=== PATIENT | female | born 1940 | race African-American/Black ===

== ENCOUNTER 2017-04-26 18:21 | Emergency (ER) | payer MEDICARE, BC ==
[~2017-04-26] VITALS: Ht 165.1 cm; Wt 72.6 kg
[2017-04-26 19:30] VITALS: BP 187/76
[2017-04-26 19:34] LABS: BASOPHILS % (AUTO) 1.7 % (0.0-2.0); EOSINOPHILS % (AUTO) 2.9 % (0.0-3.0); LYMPHOCYTES % (AUTO) 44.2 % (20.0-45.0); MEAN CORPUSCULAR HGB CONC 30.9 G/DL (32.0-36.0); MEAN CORPUSCULAR VOLUME 91 FL (80-99); MEAN PLATELET VOLUME 6.3 FL (6.5-10.1); MONOCYTES % (AUTO) 6.1 % (1.0-10.0); NEUTROPHILS % (AUTO) 45.1 % (45.0-75.0); PLATELET COUNT 286 K/UL (150-450); RED CELL DISTRIBUTION WIDTH 12.3 % (11.6-14.8)
[2017-04-26 20:38] LABS: ALANINE AMINOTRANSFERASE 21 U/L (12-78); ALBUMIN/GLOBULIN RATIO 0.9 (1.0-2.7); ANION GAP 11 mmol/L (5-15); ASPARTATE AMINO TRANSFERASE 21 U/L (15-37); CALCIUM 9.9 MG/DL (8.5-10.1); CARBON DIOXIDE 25 MMOL/L (21-32); CHLORIDE 99 MMOL/L (98-107); POTASSIUM 4.2 MMOL/L (3.5-5.1); SODIUM 135 MMOL/L (136-145); TOTAL PROTEIN 7.5 G/DL (6.4-8.2)
--- NOTE | 2017-04-26 20:54 | Emergency Room Report ---
History of Present Illness General Chief Complaint: Pain Source: Patient Present Illness HPI 77YOF walk-in with left forearm/hand numbness/tingling for 3 hours Denies any weakness/loss of strength to left hand "worried its another CVA." Is on Plavix, ASA since ?CVA in November - left her right right sided residual weakness Also history of IDDM, compliant. Checked glucose at home, was "normal." Patient History Past Medical History: DM, CVA/TIA Past Surgical History: none Pertinent Family History: none Social History: Denies: smoking, alcohol use, drug use Now: No Immunizations: UTD Reviewed Nursing Documentation: PMH: Agreed, PSxH: Agreed Nursing Documentation-PMH Hx Hypertension: Yes Hx Diabetes: Yes Hx Cerebrovascular Accident: Yes Review of Systems All Other Systems: negative except mentioned in HPI Physical Exam Vital Signs Date Time Temp Pulse Resp B/P (MAP) Pulse Ox O2 Delivery O2 Flow Rate FiO2 04/26/17 18:29 99.1 66 18 187/76 99 Room Air Sp02 EP Interpretation: reviewed, normal General Appearance: normal inspection, well appearing, no apparent distress, alert, GCS 15, non-toxic Head: normocephalic, atraumatic Eyes: bilateral eye PERRL, bilateral eye EOMI ENT: normal ENT inspection, hearing grossly normal, normal voice Neck: normal inspection, full range of motion, supple, no bony tend Respiratory: normal inspection, lungs clear, normal breath sounds, no respiratory distress, no retraction, no accessory muscle use, no wheezing, speaking full sentences Cardiovascular #1: regular rate, rhythm, no edema Gastrointestinal: normal inspection, normal bowel sounds, non tender, soft, no guarding, no hernia Genitourinary: no CVA tenderness Musculoskeletal: normal inspection, back normal, normal range of motion, Britany' s Sign negative Neurologic: normal inspection, alert, oriented x3, responsive, public health technologist III-XII nml as tested, speech normal Psychiatric: normal inspection, judgement/insight normal, mood/affect normal Skin: normal inspection, normal color, no rash Lymphatic: normal inspection Medical Decision Making Medicare Attestation I Aram Villarreal MD hereby attest that the medical record entry for date of service, 04/26/17 accurately reflects signatures/notations that I made in my capacity as MD when I treated/diagnosed the above listed Medicare beneficiary. I attest that this information is true, accurate and complete to the best of my knowledge. I understand that any falsification, omission, or concealment of material fact may subject me to administrative, civil, or criminal liability. This patient warrants hospital admission for extreme of age and has a condition that cannot be treated as outpatient. Diagnostic Impression: Primary Impression: Numbness and tingling in left hand ER Course Numbness to left hand VSS. Afebrile Radiologist from [facility] called with ?subacute/chronic left sided becca infarct. Unlikely acute No previous imaging here to compare to Likely related to old CVA Will need MRI for definitive evaluation Labs otherwise ok Endorsed to Dr Becker for panel admit at 904pm Last Vital Signs Date Time Temp Pulse Resp B/P (MAP) Pulse Ox O2 Delivery O2 Flow Rate FiO2 04/26/17 19:30 98.2 76 20 187/76 100 Room Air Status: improved Disposition: ADMITTED INPATIENT Condition: Serious Referrals: RACHLEE ZIMMERMAN (PCP) ARAM VILLARREAL M.D. Apr 26, 2017 20:54
[2017-04-26 22:05] VITALS: BP 134/48
--- NOTE | 2017-04-27 08:50 | Diagnostic Imaging Report ---
Indications: Vertigo Technique: Spiral acquisitions obtained through the brain. Angled axial and coronal 5 x 5 mm slices were reconstructed. Total dose length product 1245 mGycm. CTDI vol(s) 70 mGy. Dose reduction achieved using automated exposure control Comparison: None Findings: There is age-related enlargement of the ventricles and extra-axial CSF spaces. No acute the degree hemorrhage or edema. No mass effect or midline shift. There is mild periventricular deep white matter chronic ischemic change. There is an old lacunar infarct in the left side of the becca. Old lacunar infarct is seen in the left external capsule. Intact calvarium. There is evidence of prior bilateral cataract surgery. Visualized sinuses are unremarkable. Impression: Chronic and age-related changes Old lacunar infarcts, as described Negative for acute intracranial bleed or mass effect This agrees with the preliminary interpretation provided overnight by [facility]. The CT scanner at [facility] is accredited by the [employer] and the scans are performed using protocols designed to limit radiation exposure to as low as reasonably achievable to attain images of sufficient resolution adequate for diagnostic evaluation.
== END 2017-04-26 22:06 | disposition left against medical advice (07) ==
LOC: EMR 19:10
DX: R20.0 Anesthesia of skin (principal); R20.2 Paresthesia of skin; R42 Dizziness and giddiness; I10 Essential (primary) hypertension; E11.9 Type 2 diabetes mellitus without complications; Z86.73 Personal history of transient ischemic attack (TIA), and cerebral infarction without residual deficits
CPT/HCPCS: 36415; 70450; 80053; 82550; 85025; 99284

== ENCOUNTER 2017-11-10 19:29 | Emergency (ER) | payer MEDICARE, BC ==
[~2017-11-10] VITALS: Ht 165.1 cm; Wt 70.3 kg
[2017-11-10] MEDS ORDERED: COREG3.125 MG ORAL (19:42)
[2017-11-10] MEDS ORDERED: ASPIRIN81 MG ORAL (19:42)
[2017-11-10] MEDS ORDERED: LANTUS SOL100 UNIT/1 SUBQ (19:42)
[2017-11-10] MEDS ORDERED: PLAVIX75 MG ORAL (19:42)
[2017-11-10] MEDS ORDERED: HUMALOG100 UNIT/4 SUBQ (19:42)
--- NOTE | 2017-11-10 20:40 | Emergency Room Report ---
History of Present Illness General Chief Complaint: Multiple Trauma/Fall Source: Patient Present Illness HPI 77yo F with h/o CVA with R HP and htn p/w occipital ABDULLAHI s/p fall down That occurred when she was not using her walker and trying to get up She did not lose consciousness, denies neck pain, denies any new numbness tingling or weakness She did not bleed anywhere, did not have chest pain and had no other complaints at all She has chronic pain in her right leg and reports that is unchanged She is able to move everything and does not feel any changes at all of this headache She is due for her nighttime blood pressure medications which she did not take because she came to the ER Allergies: Coded Allergies: No Known Allergies (Unverified , 04/27/17) Patient History Past Medical History: see triage record Last Menstrual Period: NA Reviewed Nursing Documentation: PMH: Agreed; PSxH: Agreed Nursing Documentation-PMH Hx Hypertension: Yes Hx Diabetes: Yes Hx Cerebrovascular Accident: Yes Review of Systems All Other Systems: negative except mentioned in HPI Physical Exam Vital Signs Date Time Temp Pulse Resp B/P (MAP) Pulse Ox O2 Delivery O2 Flow Rate FiO2 11/10/17 19:37 98.6 78 18 202/98 98 Room Air 98.6 Sp02 EP Interpretation: reviewed, normal, abnormal - htn General Appearance: no apparent distress, alert, non-toxic Head: normocephalic, other - small hematoma over occiput, tender Eyes: bilateral eye normal inspection, bilateral eye PERRL, bilateral eye EOMI ENT: normal ENT inspection, hearing grossly normal, normal pharynx, no angioedema, normal voice, moist mucus membranes Neck: normal inspection, full range of motion, supple, no bony tend, supple/ symm/no masses Respiratory: chest non-tender, lungs clear, normal breath sounds, chest symmetrical, palpation of chest normal Cardiovascular #1: normal peripheral pulses, regular rate, rhythm Cardiovascular #2: 2+ radial (R), 2+ radial (L) Gastrointestinal: normal inspection, non tender, soft, no mass, no guarding, no rebound Rectal: deferred Genitourinary: normal inspection, no CVA tenderness Musculoskeletal: back normal, gait/station normal, normal range of motion, non- tender, no calf tenderness Neurologic: alert, responsive, educational manager III-XII nml as tested, motor strength/tone normal - R sided weakness 4/5, sensory intact, speech normal Psychiatric: judgement/insight normal, memory normal, mood/affect normal, no suicidal/homicidal ideation Skin: normal color, no rash, warm/dry, normal turgor Lymphatic: no adenopathy Medical Decision Making Diagnostic Impression: Primary Impression: Fall ER Course Patient well-appearing, Workup was minimal this was a mechanical fall Patient with normal exam other than small hematoma BP treated with meds Rhythm Strip Diag. Results Rhythm Strip Time: 20:38 EP Interpretation: yes Rate: 68 Rhythm: NSR, no PVC's, no ectopy CT/MRI/US Diagnostic Results CT/MRI/US Diagnostic Results : Imaging Test Ordered: ct head and c-spine Reevaluation Time: 22:22 Last Vital Signs Date Time Temp Pulse Resp B/P (MAP) Pulse Ox O2 Delivery O2 Flow Rate FiO2 11/10/17 19:37 98.6 78 18 202/98 98 Room Air 98.6 Status: improved Reevaluation Impression BP improved without any BP meds, just 1 tab of tylenol 3, ct scans head and c- spine normal, dc'd home Disposition: HOME, SELF-CARE Condition: Stable YAMILA FAIR M.D November 10, 2017 20:40
[2017-11-10] MEDS ORDERED: cloNIDine 0.2mg Tab ORAL ONE (20:45)
[2017-11-10] MEDS ORDERED: Tylenol #3 tab (300mg/30mg) ORAL ONE ×2 (20:45→21:30)
[2017-11-10 22:20] VITALS: BP 149/52
[2017-11-10 22:22] VITALS: BP 149/52
--- NOTE | 2017-11-11 10:40 | Diagnostic Imaging Report ---
Indication: Neck pain and trauma Technique: Continuous helical imaging of the cervical spine was obtained transaxially from the skull base to the upper thoracic spine. 2-D coronal and sagittal reformatted images were obtained. Automatic Exposure Control was utilized. Total Dose length Product (DLP): 1671.[address] Dose Index Volume (CTDIvol): 70.38,17.65 mGy Comparison: None Findings: There is no acute fracture or malalignment identified. There is no soft tissue swelling identified. Moderate uncovertebral arthritis is demonstrated at multiple levels. Some of the intervertebral discs show narrowing and osteophytes. Multilevel foraminal stenosis demonstrated. Central stenosis also suspected at multiple levels. This may be evaluated further with MRI. Scattered arterial calcifications are present. Impression: No acute injury Moderate spondylosis. Suggestion of multilevel central canal and neural foraminal stenosis. Further evaluation with MRI may be helpful. [facility] has communicated the preliminary results to the Emergency Department. Their findings are largely concordant with this report. The CT scanner at [facility] is accredited by the [employer] and the scans are performed using dose optimization techniques as appropriate to a performed exam including Automatic Exposure control.
--- NOTE | 2017-11-11 10:53 | Diagnostic Imaging Report ---
Indication: Headache Technique: Contiguous 5 mm thick transaxial imaging of the head obtained in a Siemens Sensation [address] scanner. Soft tissue and bone windows generated. Automatic Exposure Control was utilized. Total Dose length Product (DLP): 1671.[address] Dose Index Volume (CTDIvol): 70.38,17.65 mGy Comparison: none Findings: There is mild prominence of the ventricles, basal cisterns, and cerebral sulci consistent with atrophy. Mild, nonspecific, white matter hypoattenuation is noted throughout the brain consistent with chronic small vessel disease. There is no midline shift, edema, acute hemorrhage, mass effect, or abnormal extra-axial fluid collections. Bones and extra osseous soft tissues are unremarkable. Impression: No acute intracranial bleed, mass effect or edema. Mild atrophy of the brain. Nonspecific white matter hypoattenuation probably due to chronic small vessel disease. [facility] has communicated the preliminary results to the Emergency Department. Their findings are largely concordant with this report. The CT scanner at [facility] is accredited by the [employer] and the scans are performed using dose optimization techniques as appropriate to a performed exam including Automatic Exposure control.
== END 2017-11-10 22:22 | disposition home or self-care (01) ==
LOC: EMR 20:25
DX: S00.03XA Contusion of scalp, initial encounter (principal); W19.XXXA Unspecified fall, initial encounter; Y92.9 Unspecified place or not applicable; M54.2 Cervicalgia; E11.9 Type 2 diabetes mellitus without complications; I10 Essential (primary) hypertension; Z86.73 Personal history of transient ischemic attack (TIA), and cerebral infarction without residual deficits
CPT/HCPCS: 70450; 72125; 99284

== ENCOUNTER 2019-07-15 08:45 | Emergency (ER) | payer BC, MEDICARE ==
[~2019-07-15] VITALS: Ht 165.1 cm; Wt 63.5 kg
[~2019-07-15 08:45] MED LIST: ASPIRIN81 MG ORAL; COREG3.125 MG ORAL; HUMALOG100 UNIT/4 SUBQ; LANTUS SOL100 UNIT/1 SUBQ; PLAVIX75 MG ORAL
[2019-07-15 09:01] VITALS: BP 124/65
--- NOTE | 2019-07-15 09:05 | NUR ---
ED Nurse Note: pt walked in to ER with a cane due to Rt shoulder pain 10/12 radiates to Rt arm and unable to lift it since . pt aao x4 and ambulatory with a cane. calm and cooperative. pt also c/o both legs pain 10/12. pt has h/o 2 stroke which affected on Rt side of body. pt has no s/s of stroke at this moment. no drooping, asymetric facial movement present at this moment. pt is in gown and on assessor.
--- NOTE | 2019-07-15 09:09 | Emergency Room Report ---
History of Present Illness General Chief Complaint: General Complaint Source: Patient Present Illness HPI Patient presents with complaints of weakness in both of her legs reports that symptoms started on And her family talked her into coming to the emergency room patient also was having Pain to the right arm with movement Initially reports having difficulty raising the arm however on further questioning it secondary to pain Denies any chest pain or shortness of breath denies any vomiting or diarrhea Denies any recent trauma or travel Allergies: Coded Allergies: No Known Allergies (Unverified , 04/27/17) Patient History Past Medical History: see triage record Reviewed Nursing Documentation: PMH: Agreed; PSxH: Agreed Nursing Documentation-PMH Hx Hypertension: Yes Hx Diabetes: Yes Hx Cerebrovascular Accident: Yes Review of Systems All Other Systems: negative except mentioned in HPI Physical Exam Vital Signs Date Time Temp Pulse Resp B/P (MAP) Pulse Ox O2 Delivery O2 Flow Rate FiO2 07/15/19 08:48 97.9 67 16 124/65 (84) 98 Room Air Sp02 EP Interpretation: reviewed, normal General Appearance: well appearing, no apparent distress Head: normocephalic, atraumatic Eyes: bilateral eye PERRL, bilateral eye EOMI ENT: EOM grossly intact, normal pharynx Neck: supple, no meningismus, no bony tend Respiratory: lungs clear, no respiratory distress, no retraction Cardiovascular #1: regular rate, rhythm Gastrointestinal: non tender, soft Genitourinary: no CVA tenderness Musculoskeletal: other - Patient is able to raise both arms there is no obvious drift on the exam, patient has right foot drop, during ambulation patient requires using a walker which she came in with Neurologic: alert, oriented x3, sensory intact Psychiatric: normal inspection Skin: no rash Lymphatic: no adenopathy Medical Decision Making Diagnostic Impression: Primary Impression: Weakness ER Course Patient is a fairly complex patient with multiple differential to consideration including but not limited to cardiac cardiopulmonary and vascular emergencies Other differential such as neurological neurosurgical, process entertained Initial CT head shows some nonspecific findings no obvious hemorrhage L-spine imaging shows multiple degeneration and disc bulge Patient has history of chronic right leg drop At this time admission was initiated and patient admitted to inpatient care for further neurological/neurosurgical evaluation other imaging such as MRI Patient however at this time refuses further inpatient care it was discussed with her and the family at bedside that the exam at this time is not definitive Leaving at this time can lead to worsening symptoms possible patient is awake alert Has full decision-making capacity and leaving AGAINST MEDICAL ADVICE Labs Test 07/15/19 09:30 07/15/19 10:23 White Blood Count 8.3 K/UL (4.8-10.8) Red Blood Count 4.14 M/UL (4.20-5.40) Hemoglobin 12.0 G/DL (12.0-16.0) Hematocrit 37.6 % (37.0-47.0) Mean Corpuscular Volume 91 FL (80-99) Mean Corpuscular Hemoglobin 28.9 PG (27.0-31.0) Mean Corpuscular Hemoglobin Concent 31.8 G/DL (32.0-36.0) Red Cell Distribution Width 12.3 % (11.6-14.8) Platelet Count 278 K/UL (150-450) Mean Platelet Volume 6.3 FL (6.5-10.1) Neutrophils (%) (Auto) 58.7 % (45.0-75.0) Lymphocytes (%) (Auto) 29.5 % (20.0-45.0) Monocytes (%) (Auto) 7.8 % (1.0-10.0) Eosinophils (%) (Auto) 3.0 % (0.0-3.0) Basophils (%) (Auto) 1.0 % (0.0-2.0) Sodium Level 135 MMOL/L (136-145) Potassium Level 5.1 MMOL/L (3.5-5.1) Chloride Level 102 MMOL/L (98-107) Carbon Dioxide Level 23 MMOL/L (21-32) Anion Gap 10 mmol/L (5-15) Blood Urea Nitrogen 21 mg/dL (7-18) Creatinine 1.2 MG/DL (0.55-1.30) Estimat Glomerular Filtration Rate mL/min (>60) Glucose Level 184 MG/DL (74-106) Calcium Level 8.7 MG/DL (8.5-10.1) Total Bilirubin 0.3 MG/DL (0.2-1.0) Aspartate Amino Transf (AST/SGOT) 19 U/L (15-37) Alanine Aminotransferase (ALT/SGPT) 17 U/L (12-78) Alkaline Phosphatase 109 U/L (46-116) Total Creatine Kinase 202 U/L (26-308) Troponin I 0.000 ng/mL (0.000-0.056) Total Protein 7.9 G/DL (6.4-8.2) Albumin 3.5 G/DL (3.4-5.0) Globulin 4.4 g/dL Albumin/Globulin Ratio 0.8 (1.0-2.7) Lipase 91 U/L (73-393) Urine Color Pale yellow Urine Appearance Clear Urine pH 5 (4.5-8.0) Urine Specific [place] 1.010 (1.005-1.035) Urine Protein Negative (NEGATIVE) Urine Glucose (UA) Negative (NEGATIVE) Urine Ketones Negative (NEGATIVE) Urine Blood Negative (NEGATIVE) Urine Nitrite Negative (NEGATIVE) Urine Bilirubin Negative (NEGATIVE) Urine Urobilinogen Normal MG/DL (0.0-1.0) Urine Leukocyte Esterase Negative (NEGATIVE) EKG Diagnostic Results Rate: normal Rhythm: NSR ST Segments: other - Nonspecific ST and T wave changes Rhythm Strip Diag. Results EP Interpretation: yes Rate: 77 Rhythm: NSR, no PVC's, no ectopy Chest X-Ray Diagnostic Results Chest X-Ray Diagnostic Results : Chest X-Ray Ordered: Yes # of Views/Limited/Complete: 1 View Indication: Chest Pain EP Interpretation: Yes Interpretation: no consolidation, no effusion, no pneumothorax Impression: No acute disease Electronically Signed by: Angle Keita DO CT/MRI/US Diagnostic Results CT/MRI/US Diagnostic Results : Impression CT L-spine IMPRESSION: 1. Grade 1 anterolisthesis of L4 relative to L5 with 3 mm offset. 2. Severe degenerative disc space loss at L3-L4. Moderate degenerative disc space loss at L2-3 and L4-5. 3. Small annular disc bulges at L4-5 and L5-S1. MRI is more sensitive for the evaluation of disc disease. 4. Multilevel bilateral facet arthrosis, most prominent from L3-L4 through L5-S1. CT headIMPRESSION: No acute intracranial findings. Last Vital Signs Date Time Temp Pulse Resp B/P (MAP) Pulse Ox O2 Delivery O2 Flow Rate FiO2 07/15/19 09:01 67 16 Room Air 07/15/19 09:01 97.9 124/65 98 Status: improved Disposition: AGAINST MEDICAL ADVICE Condition: Serious Angle Keita DO Jul 15, 2019 09:09
--- NOTE | 2019-07-15 09:27 | NUR ---
ED Nurse Note: blood sent to lab.
--- NOTE | 2019-07-15 09:30 | NUR ---
ED Nurse Note: pt taken for imaging in stable condition.
--- NOTE | 2019-07-15 09:47 | NUR ---
ED Nurse Note: called lab to run the blood sample.
--- NOTE | 2019-07-15 09:53 | NUR ---
ED Nurse Note: pt came back from imaiging in stable condition. goddaughter at bedside.
[2019-07-15 09:57] LABS: HEMATOCRIT 37.6 % (37.0-47.0); LYMPHOCYTES % (AUTO) 29.5 % (20.0-45.0); MEAN CORPUSCULAR VOLUME 91 FL (80-99); MONOCYTES % (AUTO) 7.8 % (1.0-10.0); NEUTROPHILS % (AUTO) 58.7 % (45.0-75.0); PLATELET COUNT 278 K/UL (150-450); RED BLOOD COUNT 4.14 M/UL (4.20-5.40); RED CELL DISTRIBUTION WIDTH 12.3 % (11.6-14.8); WHITE BLOOD COUNT 8.3 K/UL (4.8-10.8)
[2019-07-15 10:05] LABS: ANION GAP 10 mmol/L (5-15); BLOOD UREA NITROGEN 21 mg/dL (7-18); CALCIUM 8.7 MG/DL (8.5-10.1); CARBON DIOXIDE 23 MMOL/L (21-32); CHLORIDE 102 MMOL/L (98-107); CREATININE 1.2 MG/DL (0.55-1.30); POTASSIUM 5.1 MMOL/L (3.5-5.1); SODIUM 135 MMOL/L (136-145)
[2019-07-15 10:09] LABS: ALANINE AMINOTRANSFERASE 17 U/L (12-78); ALBUMIN 3.5 G/DL (3.4-5.0); ALBUMIN/GLOBULIN RATIO 0.8 (1.0-2.7); ALKALINE PHOSPHATASE 109 U/L (46-116); ASPARTATE AMINO TRANSFERASE 19 U/L (15-37); BILIRUBIN,TOTAL 0.3 MG/DL (0.2-1.0); CREATINE KINASE 202 U/L (26-308)
--- NOTE | 2019-07-15 10:11 | NUR ---
ED Nurse Note: x-ray at bedside.
--- NOTE | 2019-07-15 10:19 | NUR ---
ED Nurse Note: pt ambulated with a cane to bathroom to provide urine sample.
[2019-07-15 10:34] LABS: APPEARANCE,URINE CLEAR; BILIRUBIN, URINE NEGATIVE (NEGATIVE); COLOR,URINE PALE YELLOW; GLUCOSE, URINE (UA) NEGATIVE (NEGATIVE); KETONES,URINE NEGATIVE (NEGATIVE); LEUKOCYTE ESTERASE ,URINE NEGATIVE (NEGATIVE); NITRITE,URINE NEGATIVE (NEGATIVE); PH,URINE 5 (4.5-8.0); PROTEIN,URINE NEGATIVE (NEGATIVE); UROBILINOGEN,URINE NORMAL MG/DL (0.0-1.0)
--- NOTE | 2019-07-15 10:44 | NUR ---
ED Nurse Note: pt refused to be admitted. pt requested to speak with ERMD. ERMD made aware.
--- NOTE | 2019-07-15 10:48 | Diagnostic Imaging Report ---
EXAM: CT Head Without Intravenous Contrast CLINICAL HISTORY: WEAK TECHNIQUE: Axial computed tomography images of the head/brain without intravenous contrast. CTDI is 62.70 mGy and DLP is 1269.50 mGy-cm. One or more of the following dose reduction techniques were used: automated exposure control, adjustment of the mA and/or kV according to patient size, use of iterative reconstruction technique. Coronal reformatted images were created and reviewed. COMPARISON: CT head dated 11/10/17 FINDINGS: Brain: Incidental note of microcalcifications in the basal ganglia. Mild generalized cerebral parenchymal volume loss, likely age-related. Mild periventricular and subcortical white matter hypodensities, likely related to chronic small vessel disease changes. No evidence of acute intracranial hemorrhage. No significant white matter disease. No edema. No mass effect or midline shift. Ventricles: Unremarkable. No ventriculomegaly. Bones/joints: Unremarkable. No depressed skull fracture. Soft tissues: Unremarkable. Sinuses: Unremarkable as visualized. No acute sinusitis. Mastoid air cells: Unremarkable as visualized. No mastoid effusion. IMPRESSION: No acute intracranial findings.
--- NOTE | 2019-07-15 10:51 | Diagnostic Imaging Report ---
EXAM: CT Lumbar Spine Without Intravenous Contrast CLINICAL HISTORY: WEAK TECHNIQUE: Axial computed tomography images of the lumbar spine without intravenous contrast. Sagittal and coronal reformatted images were created and reviewed. CTDI is 18.20 mGy and DLP is 702.30 mGy-cm. One or more of the following dose reduction techniques were used: automated exposure control, adjustment of the mA and/or kV according to patient size, use of iterative reconstruction technique. COMPARISON: No relevant prior studies available. FINDINGS: Vertebrae: Grade 1 anterolisthesis of L4 relative to L5 with 3 mm offset. Mild left convex lumbar scoliotic curvature centered at L3. There are 5 [id number] lumbar vertebral segments. No visible fracture. The lumbar spinous processes and transverse processes appear intact. Discs/spinal canal/neural foramina: Severe degenerative disc space loss at L3-L4. Moderate degenerative disc space loss at L2-3 and L4-5. Small annular disc bulges at L4-5 and L5-S1. Multilevel bilateral facet arthrosis, most prominent from L3-L4 through L5-S1. Soft tissues: Unremarkable. Vasculature: Atherosclerosis throughout the abdominal aorta and its proximal branches. No abdominal aortic aneurysm. Gallbladder and bile ducts: Status post cholecystectomy. IMPRESSION: 1. Grade 1 anterolisthesis of L4 relative to L5 with 3 mm offset. 2. Severe degenerative disc space loss at L3-L4. Moderate degenerative disc space loss at L2-3 and L4-5. 3. Small annular disc bulges at L4-5 and L5-S1. MRI is more sensitive for the evaluation of disc disease. 4. Multilevel bilateral facet arthrosis, most prominent from L3-L4 through L5-S1.
[2019-07-15] MEDS ORDERED: MIRTAZAPINE15 MG ORAL (10:53)
[2019-07-15] MEDS ORDERED: PRAVASTATIN SOD20 M1 ORAL (10:53)
--- NOTE | 2019-07-15 10:58 | Diagnostic Imaging Report ---
EXAM: XR Chest, 1 View CLINICAL HISTORY: Chest pain TECHNIQUE: Frontal view of the chest. COMPARISON: No relevant prior studies available. FINDINGS: Lungs: Unremarkable. The lungs appear clear. No focal consolidation. Pleural space: Unremarkable. The costophrenic angles are sharp. No visible pneumothorax. Heart: Unremarkable. No cardiomegaly. Mediastinum: Unremarkable. Bones/joints: Unremarkable. Vasculature: Atherosclerotic calcifications are noted within the aortic arch. Tubes, lines and devices: Telemetry leads overlie the thorax. IMPRESSION: No acute findings.
--- NOTE | 2019-07-15 11:04 | NUR ---
ED Nurse Note: ERMD at bedside to speak to pt as pt requested.
--- NOTE | 2019-07-15 11:14 | NUR ---
ED Nurse Note: pt spoke to doctor and provided the risk of leaving AMA. pt still insisted to leave and stated "i will come back for reccurent symptoms. I know my body well." CN made aware.
[2019-07-15 11:16] VITALS: BP 131/82
--- NOTE | 2019-07-15 11:17 | NUR ---
ED Nurse Note: Pt decided to leave AMA after education on the risk of leaving AMA provided. DC as AMA instructions was given to come back for recurrent symptoms and explained to pt and verbalized understanding of teachings. All medical deviecs such as ID band removed. Pt is AAO x4, ambulatory with a cane and left with all personal belongings. pt was accompanied by god daughter.
== END 2019-07-15 11:16 | disposition left against medical advice (07) ==
LOC: EMR 09:00 → EDBEDREQ 10:15 → 3E 10:24 → UNDOADMIN 10:24 → CANBEDREQ 11:14 → EMR 11:16
DX: R53.1 Weakness (principal); I10 Essential (primary) hypertension; E11.9 Type 2 diabetes mellitus without complications; Z53.29 Procedure and treatment not carried out because of patient's decision for other reasons; Z86.73 Personal history of transient ischemic attack (TIA), and cerebral infarction without residual deficits
CPT/HCPCS: 36415; 70450; 71045; 72131; 80053; 81003; 82550; 83690; 84484; 85025; 93005; 99284

== ENCOUNTER 2019-08-02 12:41 | Emergency (ER) | payer BC ==
[~2019-08-02] VITALS: Ht 165.1 cm; Wt 64.9 kg
[~2019-08-02 12:41] MED LIST changes: +MIRTAZAPINE15 MG ORAL; +PRAVASTATIN SOD20 M1 ORAL
--- NOTE | 2019-08-02 13:00 | NUR ---
ED Nurse Note: Patient walked into ED from home ambulatory with cane c/o high blood pressure with headache since this morning. patient is worried that she might have stroke. patient is alert awake x4 ambulatory, breathing unlabored and even, reports that the headache is on her frontal forehead.
--- NOTE | 2019-08-02 13:31 | NUR ---
ED Nurse Note: patient left to CT head
--- NOTE | 2019-08-02 14:12 | NUR ---
ED Nurse Note: patient came back from CT scan. patient on a hospital gown, on a quality assurance monitor body.
[2019-08-02 14:14] VITALS: BP 194/72
[2019-08-02 14:38] LABS: EOSINOPHILS % (AUTO) 2.4 % (0.0-3.0); HEMATOCRIT 36.9 % (37.0-47.0); LYMPHOCYTES % (AUTO) 39.1 % (20.0-45.0); MEAN CORPUSCULAR VOLUME 89 FL (80-99); MONOCYTES % (AUTO) 9.4 % (1.0-10.0); NEUTROPHILS % (AUTO) 48.1 % (45.0-75.0); PLATELET COUNT 278 K/UL (150-450); RED BLOOD COUNT 4.16 M/UL (4.20-5.40); RED CELL DISTRIBUTION WIDTH 12.1 % (11.6-14.8); WHITE BLOOD COUNT 6.7 K/UL (4.8-10.8)
--- NOTE | 2019-08-02 14:43 | Diagnostic Imaging Report ---
Indications: Headache, hypertension Technique: Spiral acquisitions obtained through the brain. Angled axial and coronal 5 x 5 mm slices were reconstructed. Total dose length product 1300 mGycm. CTDI vol(s) 62 mGy. Dose reduction achieved using automated exposure control Comparison: 07/15/2019 Findings: Again demonstrated is age-related enlargement of the ventricles and extra axial CSF spaces. There is mild periventricular deep white matter low-attenuation, consistent with chronic microvascular ischemic change. Old lacunar infarcts are again demonstrated in the becca and midbrain. Otherwise normal [place]-white differentiation. No acute intracranial hemorrhage or edema. No mass effect nor midline shift. There is evidence of prior bilateral cataract surgery. The mastoids are clear. There is minimal ethmoid sinus mucosal disease. The calvarium is intact. There is no significant interim change Impression: Chronic and age-related changes, including old infarcts as described. Negative for acute intracranial bleed or mass effect The CT scanner at [facility] is accredited by the [employer] and the scans are performed using protocols designed to limit radiation exposure to as low as reasonably achievable to attain images of sufficient resolution adequate for diagnostic evaluation.
[2019-08-02 14:49] LABS: ANION GAP 10 mmol/L (5-15); BLOOD UREA NITROGEN 9 mg/dL (7-18); CALCIUM 9.3 MG/DL (8.5-10.1); CARBON DIOXIDE 27 MMOL/L (21-32); CHLORIDE 102 MMOL/L (98-107); CREATININE 0.9 MG/DL (0.55-1.30); POTASSIUM 4.2 MMOL/L (3.5-5.1); SODIUM 139 MMOL/L (136-145)
[2019-08-02 14:50] LABS: INR 1.1 (0.9-1.1)
[2019-08-02 14:51] VITALS: BP 194/72
[2019-08-02 14:54] LABS: ALANINE AMINOTRANSFERASE 19 U/L (12-78); ALBUMIN 3.8 G/DL (3.4-5.0); ALBUMIN/GLOBULIN RATIO 0.9 (1.0-2.7); ALKALINE PHOSPHATASE 86 U/L (46-116); ASPARTATE AMINO TRANSFERASE 20 U/L (15-37); BILIRUBIN,TOTAL 0.5 MG/DL (0.2-1.0)
--- NOTE | 2019-08-02 14:55 | NUR ---
ED Nurse Note: notified Dr. Keita about patient's request for blood pressure medication. see med reconciliation.
[2019-08-02] MEDS ORDERED: COREG12.5 MG ORAL (15:01)
[2019-08-02] MEDS ORDERED: CATAPRES0.3 MG ORAL (15:01)
[2019-08-02] MEDS ORDERED: BENICAR40 MG ORAL (15:01)
[2019-08-02] MEDS ORDERED: cloNIDine 0.2mg Tab ONE (15:05)
[2019-08-02] MEDS ORDERED: cloNIDine 0.2mg Tab ORAL ONE (15:15)
--- NOTE | 2019-08-02 15:28 | Emergency Room Report ---
History of Present Illness General Chief Complaint: Hypertension Source: Patient Present Illness HPI Patient presents with complaints of high blood pressure Reports that she was having difficulty sleeping last night Denies any headache denies any chest pain Denies any vomiting or diarrhea Denies any focal weakness Patient denies any recent change in medications Denies any visual changes Allergies: Coded Allergies: [id number] REDUCTASE INHIBITOR (Verified Allergy, Unknown, 08/02/19) Patient History Past Medical History: see triage record Reviewed Nursing Documentation: PMH: Agreed; PSxH: Agreed Nursing Documentation-PMH Past Medical History: No History, Except For Hx Hypertension: Yes Hx Diabetes: Yes Hx Cerebrovascular Accident: Yes Review of Systems All Other Systems: negative except mentioned in HPI Physical Exam Vital Signs Date Time Temp Pulse Resp B/P (MAP) Pulse Ox O2 Delivery O2 Flow Rate FiO2 08/02/19 12:56 97.7 63 15 205/64 (111) 99 Room Air Sp02 EP Interpretation: reviewed, normal General Appearance: well appearing, no apparent distress Head: normocephalic, atraumatic Eyes: bilateral eye PERRL, bilateral eye EOMI ENT: hearing grossly normal, EOM grossly intact Neck: supple Respiratory: lungs clear, no retraction, no accessory muscle use Cardiovascular #1: regular rate, rhythm Gastrointestinal: normal bowel sounds, non tender Musculoskeletal: normal inspection Neurologic: alert, oriented x3 Psychiatric: normal inspection Skin: no rash Lymphatic: no adenopathy Medical Decision Making Diagnostic Impression: Primary Impression: Hypertensive urgency, malignant ER Course Patient is a fairly complex patient with multiple differential to consideration including but not limited to cardiac cardiopulmonary , neurological , neurosurgical and vascular emergencies Patient initially was found to be somewhat bradycardic Further monitoring was performed and patient did have medication prescribed for continued hypertension Patient refused the initial IV medication and requested clonidine Patient also placed in request for inpatient admission given the hypertensive presentation On reevaluation patient is requesting to be let go reports that she wants to go to her Regular hospital Patient understands that leaving at this time can lead to worsening symptoms such as stroke possible Patient has full decision-making capacity and is refusing any further care Labs Test 08/02/19 14:20 White Blood Count 6.7 K/UL (4.8-10.8) Red Blood Count 4.16 M/UL (4.20-5.40) Hemoglobin 12.0 G/DL (12.0-16.0) Hematocrit 36.9 % (37.0-47.0) Mean Corpuscular Volume 89 FL (80-99) Mean Corpuscular Hemoglobin 28.8 PG (27.0-31.0) Mean Corpuscular Hemoglobin Concent 32.4 G/DL (32.0-36.0) Red Cell Distribution Width 12.1 % (11.6-14.8) Platelet Count 278 K/UL (150-450) Mean Platelet Volume 6.4 FL (6.5-10.1) Neutrophils (%) (Auto) 48.1 % (45.0-75.0) Lymphocytes (%) (Auto) 39.1 % (20.0-45.0) Monocytes (%) (Auto) 9.4 % (1.0-10.0) Eosinophils (%) (Auto) 2.4 % (0.0-3.0) Basophils (%) (Auto) 1.0 % (0.0-2.0) Prothrombin Time 11.5 SEC (9.30-11.50) Prothromb Time International Ratio 1.1 (0.9-1.1) Activated Partial Thromboplast Time 28 SEC (23-33) Sodium Level 139 MMOL/L (136-145) Potassium Level 4.2 MMOL/L (3.5-5.1) Chloride Level 102 MMOL/L (98-107) Carbon Dioxide Level 27 MMOL/L (21-32) Anion Gap 10 mmol/L (5-15) Blood Urea Nitrogen 9 mg/dL (7-18) Creatinine 0.9 MG/DL (0.55-1.30) Estimat Glomerular Filtration Rate mL/min (>60) Glucose Level 112 MG/DL (74-106) Calcium Level 9.3 MG/DL (8.5-10.1) Total Bilirubin 0.5 MG/DL (0.2-1.0) Aspartate Amino Transf (AST/SGOT) 20 U/L (15-37) Alanine Aminotransferase (ALT/SGPT) 19 U/L (12-78) Alkaline Phosphatase 86 U/L (46-116) Troponin I 0.003 ng/mL (0.000-0.056) Total Protein 7.9 G/DL (6.4-8.2) Albumin 3.8 G/DL (3.4-5.0) Globulin 4.1 g/dL Albumin/Globulin Ratio 0.9 (1.0-2.7) EKG Diagnostic Results Rate: bradycardiac Rhythm: NSR ST Segments: no acute changes Rhythm Strip Diag. Results EP Interpretation: yes Rate: 60 Rhythm: NSR, no PVC's, no ectopy Chest X-Ray Diagnostic Results Chest X-Ray Diagnostic Results : Chest X-Ray Ordered: Yes # of Views/Limited/Complete: 1 View Indication: Chest Pain EP Interpretation: Yes Interpretation: no consolidation, no effusion, no pneumothorax Impression: No acute disease Electronically Signed by: Angle Keita DO CT/MRI/US Diagnostic Results CT/MRI/US Diagnostic Results : Impression CT headImpression: Chronic and age-related changes, including old infarcts as described. Negative for acute intracranial bleed or mass effect Last Vital Signs Date Time Temp Pulse Resp B/P (MAP) Pulse Ox O2 Delivery O2 Flow Rate FiO2 08/02/19 15:06 194/72 08/02/19 14:51 97.7 45 14 99 Room Air Status: improved Disposition: AGAINST MEDICAL ADVICE Condition: Serious Referrals: MILDRED TREVINO M.D. (PCP) Angle Keita DO Aug 02, 2019 15:28
[2019-08-02 15:35] VITALS: BP 194/72
--- NOTE | 2019-08-02 15:35 | NUR ---
AMA: SEE AMA FORM. despite Dr. Keita reassured patient risks of leaving hospital against medical advice, patient signed AMA paper and left with her cane and other belongings in steady gait.
--- NOTE | 2019-08-02 17:15 | Diagnostic Imaging Report ---
. Indication: Cough Technique: One view of the chest Comparison: 07/15/2019 Findings: Lungs and pleural spaces are clear. The heart size is upper limits of normal. There is no significant interim change Impression: No acute process
== END 2019-08-02 15:40 | disposition left against medical advice (07) ==
LOC: EMR 15:08 → CANBEDREQ 15:41
DX: I16.0 Hypertensive urgency (principal); E11.9 Type 2 diabetes mellitus without complications; Z86.73 Personal history of transient ischemic attack (TIA), and cerebral infarction without residual deficits; R00.1 Bradycardia, unspecified
CPT/HCPCS: 36415; 70450; 71045; 80053; 82962; 84484; 85025; 85610; 85730; 99284